=== PATIENT | male | born 1990 | race Two or more races ===

== ENCOUNTER 2018-05-29 06:40 | Emergency (ER) | payer OTHER ==
[~2018-05-29] VITALS: Ht 185.4 cm; Wt 163.0 kg
[2018-05-29 06:46] VITALS: Ht 185.4 cm; Wt 163.0 kg
[2018-05-29 09:55] VITALS: BP 137/102
== END 2018-05-29 09:55 | disposition home or self-care (01) ==
LOC: ED 06:40
DX: S62.632B Displaced fracture of distal phalanx of right middle finger, initial encounter for open fracture (principal); S61.210A Laceration without foreign body of right index finger without damage to nail, initial encounter; S61.214A Laceration without foreign body of right ring finger without damage to nail, initial encounter; W26.8XXA Contact with other sharp object(s), not elsewhere classified, initial encounter; Y93.89 Activity, other specified; Y92.89 Other specified places as the place of occurrence of the external cause; Y99.8 Other external cause status
CPT/HCPCS: 90715; J0690; J2001; J3490; Q0092